=== PATIENT | male | born 1960 | race Caucasian/White ===

== ENCOUNTER 2019-12-17 06:24 | Emergency (ER) | payer BC ==
[2020-01-30 16:54] LABS: BASO % 0.8 % (0.0-1.0); EOS # 0.1 10^3/uL (0.0-0.5); EOS % 1.1 % (0.0-3.0); ERYTHROCYTE SEDIMENTATION RATE 9 mm/hr (0-20); HEMATOCRIT 46.3 % (42.0-52.0); LYMPH # 1.1 10^3/uL (1.5-5.0); MEAN CORPUSCULAR HEMOGLOBIN 31.4 pg (27.0-33.0); MEAN CORPUSCULAR HGB CONC 34.6 g/dl (32.0-36.5); MONO # 0.6 10^3/uL (0.0-0.8); MONO % 11.3 % (0.0-5.0); NEUTROPHILS # 3.5 10^3/uL (1.5-8.5); NEUTROPHILS % 64.9 % (36.0-66.0); PLATELET COUNT, AUTOMATED 222 10^3/uL (150-450); RED BLOOD COUNT 5.09 10^6/uL (4.30-6.10); WHITE BLOOD COUNT 5.3 10^3/uL (4.0-10.0)
--- NOTE | 2020-02-04 10:08 | REP ---
RIGHT KNEE RADIOGRAPHS: FIVE VIEWS HISTORY: Unknown. Report is delayed due to a malware attack on this facility. FINDINGS: Five views of the right knee demonstrate normal bones and joints. There appears to be soft tissue swelling anteriorly and medially on the sunrise view. On this radiographic view, there is cortical irregularity and discontinuity in the anteromedial aspect of the medial femoral condyle. This is not visible on any other radiograph projection. No other evidence of fracture. Lateral view does not show evidence of joint effusion. IMPRESSION: Question fracture anteromedial distal femoral condyle. Overlying soft tissue swelling. Otherwise negative right knee radiographs. MTDD
[2020-03-06 12:39] LABS: ALBUMIN 3.8 GM/DL (3.2-5.2); ALT/SGPT 55 U/L (12-78); BILIRUBIN,TOTAL 0.4 MG/DL (0.2-1.0); BLOOD UREA NITROGEN 14 MG/DL (7-18); CALCIUM LEVEL 9.2 MG/DL (8.5-10.1); CARBON DIOXIDE LEVEL 27 MEQ/L (21-32); CHLORIDE LEVEL 109 MEQ/L (98-107); CREATININE FOR GFR 0.96 MG/DL (0.70-1.30); GLOMERULAR FILTRATION RATE > 60.0 (>56); GLUCOSE, FASTING 105 MG/DL (70-100); POTASSIUM SERUM 4.4 MEQ/L (3.5-5.1); SODIUM LEVEL 140 MEQ/L (136-145); TOTAL PROTEIN 7.6 GM/DL (6.4-8.2)
== END 2019-12-17 09:43 | disposition home or self-care (01) ==
LOC: M ED 06:24
DX: M23.91 Unspecified internal derangement of right knee (principal); W13.3XXA Fall through floor, initial encounter; Y92.099 Unspecified place in other non-institutional residence as the place of occurrence of the external cause; Y93.9 Activity, unspecified; Y99.9 Unspecified external cause status; Z79.899 Other long term (current) drug therapy; K21.9 Gastro-esophageal reflux disease without esophagitis; E78.5 Hyperlipidemia, unspecified; F41.9 Anxiety disorder, unspecified; Z95.5 Presence of coronary angioplasty implant and graft; Z85.828 Personal history of other malignant neoplasm of skin